=== PATIENT | male | born 1990 | race African-American/Black ===

== ENCOUNTER 2017-03-04 15:10 | Emergency (ER) | payer OTHER ==
[~2017-03-04 15:10] MED LIST: DOXY100T PO
[2017-03-04 15:14] VITALS: BP 149/90; PULSE 70; RESP 16; TEMP 98.2; O2SAT 100
[2017-03-04] MEDS ORDERED: LIDOCAINE HCL 1% 50 ML VIAL INFIL ONE (15:30)
--- NOTE | 2017-03-04 15:31 | PD ---
HPI Chief Complaint: Skin Problem Time Seen by Provider: 15:27 Travel History International Travel<30 days: No Contact w/Intl Traveler<30days: No Traveled to known affect area: No History of Present Illness HPI Patient's 27-year-old male presenting to emergency evaluation of an abscess to his left groin. Patient states it started on Tuesday as a small pimple and has gotten progressively larger. He states the area is painful and tender, he reports his pain is 6 out of 10. Denies any fever, chills, dysuria, testicular pain. PFSH Past Medical History Medical History: Denies Significant Hx Social History Alcohol Use: No Tobacco Use: No Substance Use: No Allergies-Medications (Allergen,Severity, Reaction): Coded Allergies: penicillin G (Unverified Allergy, Severe, Swelling, 02/09/17) Reported Meds & Prescriptions Reported Meds & Active Scripts Active No Active Prescriptions or Reported Medications Review of Systems Except as stated in HPI: all other systems reviewed are Neg Skin: Positive Lumps Physical Exam Narrative GENERAL: Well-developed, well-nourished, alert male. Resting comfortably in no acute distress. SKIN: Warm and dry. 2 cm area of fluctuance to the left groin area. Tender to palpation, no significant erythema or induration noted on exam. HEAD: Normocephalic. EYES: No scleral icterus. No injection or drainage. NECK: Supple, trachea midline. No JVD or lymphadenopathy. CARDIOVASCULAR: Regular rate and rhythm without murmurs, gallops, or rubs. RESPIRATORY: Breath sounds equal bilaterally. No accessory muscle use. GENITOURINARY: Circumcised. Testes descended bilaterally without evidence of rotation. No lesions or erythema. No urethral discharge. GASTROINTESTINAL: Abdomen soft, non-tender, nondistended. MUSCULOSKELETAL: No cyanosis, or edema. BACK: Nontender without obvious deformity. No CVA tenderness. Data Data Last Documented VS Vital Signs Date Time Temp Pulse Resp B/P (MAP) Pulse Ox O2 Delivery O2 Flow Rate FiO2 03/04/17 15:24 16 03/04/17 15:14 98.2 70 149/90 (109) 100 Orders Orders Wound Culture And Gram Stain (03/04/17 15:28) Lidocaine 1% Inj (50 Ml) (Xylocaine 1% I (03/04/17 15:30) MDM Medical Decision Making Medical Screen Exam Complete: Yes Emergency Medical Condition: Yes Interpretation(s) Vital Signs Date Time Temp Pulse Resp B/P (MAP) Pulse Ox O2 Delivery O2 Flow Rate FiO2 03/04/17 15:24 16 03/04/17 15:14 98.2 70 16 149/90 (109) 100 Differential Diagnosis Abscess versus cellulitis versus lymphogranuloma versus other Narrative Course Patient is a 27-year-old presenting for evaluation of abscess to his left groin. Patient's vitals are stable, afebrile neurovascularly intact. Please see procedure report for I&D. Patient tolerated procedure well, wound culture obtained and pending. Patient will be started on antibiotics empirically. He was encouraged to apply warm compress to affected area. Patient was encouraged to return to emergency department for any new or worsening symptoms. He was encouraged to follow-up with her primary doctor. Patient verbalized understanding of instructions. Patient stable for discharge. Procedures Procedure Narrative After the risks and benefits were discussed the following procedure was performed: INCISION AND DRAINAGE OF ABSCESS: The area was prepped and was sterilely draped. A subcutaneous wheal of [-] % Xylocaine with a total number [-] mL was used to anesthetize the area. The area was properly anesthetized. A number [-] scalpel was used to make a [-] -cm incision across the area of the abscess. Cultures were obtained. The abscess was drained an irrigated with normal saline. Quarter inch iodoform packing was placed in the wound. Sterile dressing applied. Patient advised to have packing removed in two days. Diagnosis Primary Impression: Abscess Referrals: Primary Care Physician 3 days Patient Instructions: Abscess (GEN), Abscess Incision and Drainage (DC), General Instructions Departure Forms: Tests/Procedures, Work Release Enter return to work date: Mar 06, 2017 Additional Instructions: Follow-up with your primary doctor Return to emergency department for any new or worsening symptoms Apply warm compress to affected area Keep area clean and dry, cover with nonocclusive dressing Complete full course of antibiotics as prescribed Med/Other Pt SpecificInfo: Prescription(s) given Scripts Ibuprofen (Ibuprofen) 800 Mg Tab 800 MG PO Q6HR Y for PAIN, #40 TAB 0 Refills Prov: Shelli Busby 03/04/17 Sulfamethoxazole-Trimethoprim (Bactrim DS) 800-160 Mg Tab 1 TAB PO BID for Infection, #20 TAB 0 Refills Prov: Shelli Busby 03/04/17 Disposition: 01 DISCHARGE HOME Condition: Stable Shelli Busby Mar 04, 2017 15:31
[2017-03-04] MEDS ORDERED: BACT800T5 PO ×2 (15:56→15:57)
[2017-03-04] MEDS ORDERED: IBUP800T23 PO ×2 (15:56→15:57)
== END 2017-03-04 16:20 | disposition home or self-care (01) ==
LOC: NEPD 15:10
DX: L02.214 Cutaneous abscess of groin (principal)
CPT/HCPCS: 10060; 10061; 87070